=== PATIENT | male | born 1955 | race Caucasian/White ===

== ENCOUNTER → 2023-09-21 | Outpatient (CLI) | payer MEDICARE, OTHER ==
[~2023-09-21] MED LIST: ALLO300 PO; ASPI81CH PO; ATOR40TA PO; CATAPRES0.1 MG PO; DILT180 PO; FLUTICASONE-SA1 EAC1 INH; HYDRA25 PO; LEVSOD112 PO; LISI20 PO; OMEP20ER PO; TIOT18 INH; TRAM50 PO; Ventolin5 MG/1 ML INH
[2023-09-21 11:24] LABS: Source, Urine Clean Catch
[2023-09-21 16:37] LABS: Bacteria Not Seen /hpf; Red Blood Cells, Urine Not Seen /hpf (0-2); Squamous Epithelial Cells Not Seen /hpf (Few); White Blood Cells, Urine Not Seen /hpf (0-5)
[2023-09-21 19:58] LABS: Microalb/Creat Ratio UR, Rand Unable to Calculate mg/g (0.000-30.000); Microalbumin, Random Urine <5.000 mg/L (0.000-20.000)
== END ==
LOC: LAB SHORT 11:21 → LAB 11:21
PROVIDERS: Family Medicine
DX: N39.0 Urinary tract infection, site not specified (principal); E11.59 Type 2 diabetes mellitus with other circulatory complications; E11.65 Type 2 diabetes mellitus with hyperglycemia; E11.69 Type 2 diabetes mellitus with other specified complication
CPT/HCPCS: 81015; 82043; 82570; 87086

== ENCOUNTER 2023-09-26 09:21 | Day surgery (SDC) | payer MEDICARE, OTHER ==
[~2023-09-26] VITALS: Ht 190.5 cm; Wt 122.5 kg
[2023-09-26 09:55] VITALS: BP 165/70
--- NOTE | 2023-09-26 10:10 | NUR ---
09/26/23 1010 Jayant Escobar History, Chart, Medications and Allergies reviewed before start of procedure.MONITOR INTACT WITH CONTINUOUS PULSE OXIMETRY, CONTINUOUS END TITAL CO2, AND INTERMITTENT BLOOD PRESSURE.3-LEAD EKG REVIEWED WITH PHYSICIAN PRIOR TO START OF PROCEDURE.O2 VIA N/C INTACT THROUGHOUT SEDATION/PROCEDURE.See Anesthesia record.
[2023-09-26 10:40] VITALS: BP 115/65
[2023-09-26 10:50] VITALS: BP 119/69
--- NOTE | 2023-09-26 11:15 | NUR ---
Patient up to Ambulate independently. Gait steady. Discharge instructions reviewed with patient. Patient verbalizes understanding. Copy given to patient to take home. Discharged via wheelchair to private car for ride home.
== END 2023-09-26 22:49 | disposition home or self-care (01) ==
LOC: ORSCMMR 09:21 → ORD 10:45 → ORSCMMR 10:45
PROVIDERS: Internal Medicine Gastroenterology
PROC: 0DBL8ZX Excision of Transverse Colon, Via Natural or Artificial Opening Endoscopic, Diagnostic (ICD-10-PCS; principal; 2023-09-26 10:45)
DX: Z12.11 Encounter for screening for malignant neoplasm of colon (principal); Z86.010 Personal history of colon polyps; D12.3 Benign neoplasm of transverse colon; K57.30 Diverticulosis of large intestine without perforation or abscess without bleeding; I10 Essential (primary) hypertension; K21.9 Gastro-esophageal reflux disease without esophagitis; E11.9 Type 2 diabetes mellitus without complications; E03.9 Hypothyroidism, unspecified; J44.9 Chronic obstructive pulmonary disease, unspecified; E78.00 Pure hypercholesterolemia, unspecified; E66.9 Obesity, unspecified; Z68.34 Body mass index [BMI] 34.0-34.9, adult; Z87.891 Personal history of nicotine dependence; Z79.899 Other long term (current) drug therapy
CPT/HCPCS: 88305; J2704; J7120

== ENCOUNTER → 2024-01-28 | Outpatient (CLI) | payer MEDICARE, OTHER ==
[2024-02-02 17:02] LABS: O-DESMETHYLTRAMADOL,URN, QUANT 1283 ng/mL; TRAMADOL, URN, QUANT 6857 ng/mL
== END | disposition home or self-care (01) ==
LOC: LAB 14:20 → LAB SHORT 14:20
PROVIDERS: Family Medicine
DX: Z51.81 Encounter for therapeutic drug level monitoring (principal); Z79.899 Other long term (current) drug therapy
CPT/HCPCS: G0480